=== PATIENT | male | born 1960 | race Caucasian/White ===

== ENCOUNTER 2020-02-14 13:19 | Emergency (ER) | payer OTHER ==
[~2020-02-14] VITALS: Ht 177.8 cm; Wt 79.4 kg
[2020-02-14 14:31] LABS: ABSOLUTE LYMPHOCYTES 1.5 thou/uL (0.8-5.3); ABSOLUTE MONOCYTES 0.6 thou/uL (0.0-1.2); ABSOLUTE NEUTROPHILS 5.9 thou/uL (1.6-8.1); BASOPHILS 0.6 %; EOSINOPHILS 0.3 %; HEMATOCRIT 38.2 % (42.0-52.0); HEMOGLOBIN 13.4 gm/dL (14.0-18.0); LYMPHOCYTES 18.6 %; MCH 32.8 pg (26.0-34.0); MCV 93.6 fL (80.0-100.0); MPV 7.1 fl. (7.2-11.1); NUCLEATED RBCS 0 /100WBC; PLATELET COUNT* 303 thou/uL (150-400); POLYS 73.5 %; RBC 4.08 mil/uL (4.50-6.00); RDW-CV 14.9 % (10.5-14.5); WBC 8.1 thou/uL (4.0-11.0)
[2020-02-14] MEDS ORDERED: NAPROSYN500 MG PO (14:39)
[2020-02-14 14:41] LABS: CALCIUM 8.1 mg/dL (8.5-10.1); CREATININE 0.7 mg/dL (0.6-1.3)
[2020-02-14 14:42] LABS: POTASSIUM 2.6 mmol/L (3.5-5.1)
[2020-02-14 14:46] LABS: ALBUMIN 2.7 g/dL (3.4-5.0); TOTAL BILIRUBIN 0.5 mg/dL (<0.1-1.0)
[2020-02-14] MEDS ORDERED: POTASSIUM20 PO (14:49)
[2020-02-14 15:49] VITALS: BP 113/70
--- NOTE | 2020-02-15 10:56 | EKG ---
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[employer] : 1960 Requested By: Shahana Ricks Order Number: [id number] MD: Elvin Alegria Measurements Intervals Dania Rate: 104 P: 52 NM: 208 QRS: 34 QRSD: 106 T: 230 QT: 373 QTc: 491 Interpretive Statements Sinus tachycardia Prolonged NM interval Probable left atrial enlargement Nonspecific T abnormalities, diffuse leads Borderline prolonged QT interval No previous ECG available for comparison Electronically Signed On 02-15-2020 10:56:19 CDT by Elvin Alegria [email or web address] <ELECTRONICALLY SIGNED> By: Elvin Alegria MD, [facility] 02/15/20 1056 1500 1500 Elvin Alegria MD, [facility] /EPI
== END 2020-02-14 15:50 | disposition home or self-care (01) ==
LOC: M.ERS 13:19
PROVIDERS: Physician Assistant
DX: E87.6 Hypokalemia (principal); E87.1 Hypo-osmolality and hyponatremia; M54.5 Low back pain; R10.2 Pelvic and perineal pain; R29.6 Repeated falls